=== PATIENT | male | born 1940 | race Caucasian/White ===

== ENCOUNTER 2019-07-05 06:33 | Day surgery (SDC) | payer MEDICARE ==
[2019-07-04 13:33] VITALS: BMI 24.3
[~2019-07-05 06:33] MED LIST: Fluorouracil 100 MG, Enoxaparin Sodium 25 MG, EPINEPHrine 0.3 MG in Ophthalmic Irrigati... IRR SCH
[2019-07-05] MEDS ORDERED: Phenylephrine 2.5% Ophth Soln 5 ML BOT ONE (07:01)
[2019-07-05] MEDS ORDERED: Cyclopentolate 1% Opth Drop 2 ML BOT ONE (07:01)
--- NOTE | 2019-07-05 09:59 | OP ---
DATE OF PROCEDURE: 07/05/2019 PREOPERATIVE DIAGNOSIS: Macular hole, left eye. POSTOPERATIVE DIAGNOSIS: Macular hole, left eye. PROCEDURES PERFORMED: Pars plana vitrectomy and internal limiting membrane peel, left eye. ANESTHESIA: Local with monitored anesthesia care. PROCEDURE IN DETAIL: The patient was identified in the preoperative holding area. Appropriate informed consent for the planned surgical procedure on the left eye had been obtained. The patient was transported to the operative suite where appropriate cardiopulmonary monitoring was established. Local anesthesia was obtained using retrobulbar modified Van Lint lid block using 50:50 mixture of 4% lidocaine and 0.75% bupivacaine. The patient was prepped and draped in the usual sterile manner for ophthalmic surgery in the left eye. Lid speculum was placed in the left eye. A 25-gauge trocar was placed in the conjunctiva and sclera superotemporally, inferotemporally, and supranasally. Infusion line was placed inferotemporally. Light pipe and vitreous cutter were inserted into the eye. Core vitrectomy was performed. Posterior hyaloid face was elevated and peeled into the periphery. Indocyanine green dye was infused on the posterior pole x1, identifying the internal limiting membrane. This was elevated using membrane scraper and peeled across the macula using end gripping forceps. Complete air-fluid exchange was performed and 10 minutes being allowed for fluid to drain posteriorly. A 28% sulfur hexafluoride gas was infused in the eye. Trocars were removed. Superotemporal sclerotomy was suture closed with 6-0 plain gut suture. Retrobulbar Kenalog and subconjunctival Ancef were placed. Antibiotic ointment was placed. Eye was patched and shielded. The patient was taken to postoperative recovery unit in good condition, having suffered no immediate perioperative complications. The patient was instructed to keep patch and shield on, avoid lifting or bending, avoid flat and back positioning, followup appointment with Dr. Rucker. Job ID: [id number]
[2019-07-05] MEDS ORDERED: Maxitrol 0.1% Opth Oint 3.5 GM TUBE ONE (11:56)
[2019-07-05] MEDS ORDERED: CEFAZOLIN 1 GM VIAL ONE (11:56)
[2019-07-05] MEDS ORDERED: Lidocaine 1% PF 5 ML VIAL ONE (11:56)
[2019-07-05] MEDS ORDERED: Indocyanine Green 25 MG/10 ML VIAL ONE (11:56)
[2019-07-05] MEDS ORDERED: Enoxaparin Sodium 30 MG/0.3 ML SYRINGE ONE (11:56)
[2019-07-05] MEDS ORDERED: Bupivacaine PF 0.75% SDV 10 ML ONE (11:56)
[2019-07-05] MEDS ORDERED: PROPOFOL 200 MG/20 ML VIAL ONE (11:56)
[2019-07-05] MEDS ORDERED: Lidocaine 4% PF 5 ML AMP ONE (11:56)
[2019-07-05] MEDS ORDERED: Triamcinolone 40 MG/ML VIAL ONE (11:56)
== END 2019-07-05 09:45 | disposition home or self-care (01) ==
LOC: SDC 06:33
PROVIDERS: ATTEND Ophthalmology Retina Specialist
PROC: 08T53ZZ Resection of Left Vitreous, Percutaneous Approach (ICD-10-PCS; principal; 2019-07-05)
PROC: 08NF3ZZ Release Left Retina, Percutaneous Approach (ICD-10-PCS; 2019-07-05)
DX: H35.342 Macular cyst, hole, or pseudohole, left eye (principal); J44.9 Chronic obstructive pulmonary disease, unspecified; E78.5 Hyperlipidemia, unspecified; F17.200 Nicotine dependence, unspecified, uncomplicated; F32.9 Major depressive disorder, single episode, unspecified; N40.0 Benign prostatic hyperplasia without lower urinary tract symptoms; Z79.82 Long term (current) use of aspirin; Z79.899 Other long term (current) drug therapy; Z88.4 Allergy status to anesthetic agent
CPT/HCPCS: 67025; J0171; J0690; J1650; J2001; J2704; J3301; J3490; J9190